=== PATIENT | female | born 1985 | race Caucasian/White ===

== ENCOUNTER 2017-01-23 05:55 | Inpatient (IN) | payer OTHER ==
[2017-01-23] VITALS (11 sets, daily range): BP systolic 114–136; BP diastolic 58–80
[~2017-01-23] VITALS: Ht 165.1 cm; Wt 77.0 kg
[~2017-01-23 05:55] MED LIST: FLINTSTONES1 EACH PO; HEMOCYTE324 MG PO; IBUPROFEN800 MG PO; NAPROSYN500 MG PO; NOHOMEMEDS
[2017-01-23 06:31] LABS: EOSINOPHIL COUNT 0.1 K/uL (0-0.3); HEMATOCRIT 34.9 % (36.0-46.0); IMMATURE GRANULOCYTE (%) 1.7 % (0.0-0.7); IMMATURE GRANULOCYTE COUNT 0.2 K/uL; INSTRUMENT ABS NEUTROPHIL CT 9.5 K/uL; LYMPHOCYTE COUNT 1.4 K/uL (1.0-2.8); MCHC 30.9 G/DL (30.0-36.0); MCV 80.8 FL (83-99); MEAN PLAT.VOLUME 11.8 uM^3 (9.5-12.4); MONOCYTE (%) 6.8 % (3-12); MONOCYTE COUNT 0.8 K/uL (0-0.8); NEUTROPHIL (%) 78.7 % (45-76); NEUTROPHIL COUNT 9.5 K/uL (1.8-6.4); PLATELET COUNT 168 K/uL (156-360); RBC DIS.WIDTH-CV 15.5 % (11.8-14.6); RBC DIS.WIDTH-SD 44.7 % (39-53); RED BLOOD COUNT 4.32 M/uL (3.80-5.20)
[2017-01-24 07:38] VITALS: BP 108/63
[2017-01-24 08:42] LABS: EOSINOPHIL (%) 1.9 % (0-5); EOSINOPHIL COUNT 0.2 K/uL (0-0.3); HEMATOCRIT 32.2 % (36.0-46.0); IMMATURE GRANULOCYTE (%) 1.5 % (0.0-0.7); IMMATURE GRANULOCYTE COUNT 0.2 K/uL; INSTRUMENT ABS NEUTROPHIL CT 7.6 K/uL; LYMPHOCYTE COUNT 1.8 K/uL (1.0-2.8); MCH 25.5 PG (29.0-34.0); MCHC 31.1 G/DL (30.0-36.0); MCV 82.1 FL (83-99); MONOCYTE (%) 6.4 % (3-12); MONOCYTE COUNT 0.7 K/uL (0-0.8); NEUTROPHIL (%) 72.6 % (45-76); NEUTROPHIL COUNT 7.6 K/uL (1.8-6.4); PLATELET COUNT 173 K/uL (156-360); RBC DIS.WIDTH-CV 15.6 % (11.8-14.6); RBC DIS.WIDTH-SD 46.7 % (39-53); RED BLOOD COUNT 3.92 M/uL (3.80-5.20); WHITE BLOOD COUNT 10.4 K/uL (4.1-10.2)
[2017-01-24 16:03] VITALS: BP 113/68
[2017-01-24 23:05] VITALS: BP 104/61
[2017-01-25 07:29] VITALS: BP 113/68
== END 2017-01-25 12:20 | disposition home or self-care (01) | DRG 775 ==
LOC: LDRP-OP 05:55 → 2WEST 05:56
PROVIDERS: Advanced Practice Midwife
DX: O69.1XX0 Labor and delivery complicated by cord around neck, with compression, not applicable or unspecified (principal); O99.824 Streptococcus B carrier state complicating childbirth; Z37.0 Single live birth; Z80.0 Family history of malignant neoplasm of digestive organs; Z3A.39 39 weeks gestation of pregnancy; O99.213 Obesity complicating pregnancy, third trimester; Z68.28 Body mass index [BMI] 28.0-28.9, adult; Z87.891 Personal history of nicotine dependence; E66.3 Overweight
CPT/HCPCS: 85025

== ENCOUNTER 2017-10-28 10:07 | Inpatient (IN) | payer OTHER ==
[~2017-10-28] VITALS: Ht 165.1 cm; Wt 66.3 kg
[2017-10-28 11:00] LABS: HEMATOCRIT 43.5 % (36.0-46.0); MCH 31.9 PG (29.0-34.0); MCHC 34.5 G/DL (30.0-36.0); MCV 92.6 FL (83-99); PLATELET COUNT 202 K/uL (156-360); RBC DIS.WIDTH-CV 12.1 % (11.8-14.6); RBC DIS.WIDTH-SD 41.7 % (39-53); WHITE BLOOD COUNT 8.5 K/uL (4.1-10.2)
[2017-10-28 11:47] LABS: ALBUMIN 5.1 G/DL (3.2-4.8); ALKALINE PHOSPHATASE 153 IU/L (3-129); ALT (GPT) 375 IU/L (3-49); AST (GOT) 654 IU/L (2-34); CHLORIDE 106 MEQ/L (99-109); CREATININE 0.7 MG/DL (0.6-1.3); DIRECT BILIRUBIN 1.1 mg/dL (0.0-0.3); GFR ESTIMATE (CALCULATED) > 59 mL/min/; GLUCOSE 110 mg/dL (70-99); MAGNESIUM 2.1 mg/dl (1.3-2.7); SODIUM 141 MEQ/L (136-147); TOTAL BILIRUBIN 2.7 MG/DL (0.0-1.0); TOTAL PROTEIN 7.8 G/DL (6.4-8.3); UREA NITROGEN (BUN) 12 mg/dL (9-23)
[2017-10-28 11:49] LABS: TROP-I INTERPRETATION NEGATIVE; TROPONIN-I < 0.01 ng/mL (0.0-0.30)
[2017-10-28 12:12] LABS: LIPASE 9 U/L (1.0-51.0)
[2017-10-28 12:31] LABS: QUANTITATIVE HCG < 4.0 MIU/ML
[2017-10-28 14:31] LABS: APPEARANCE CLEAR ((CLEAR)); COLOR YELLOW ((YELLOW))
[2017-10-28 14:32] LABS: GLUCOSE (STRIP) NEGATIVE; KETONES TRACE; LEUKOCYTES NEGATIVE; NITRITE NEGATIVE; PH, URINE 6.5 (5-8); PROTEIN (STRIP) TRACE
[2017-10-28 14:33] LABS: BILIRUBIN NEGATIVE; BLOOD TRACE; UROBILINOGEN 0.2 MG/DL (0.2-1.0)
[2017-10-28] MEDS ORDERED: LEVOTHYROXINE50 MCG PO (14:59)
[2017-10-28] MEDS ORDERED: PRENATAL VITAM1 EAC6 PO (14:59)
[2017-10-28 15:07] LABS: BACTERIA RARE /HPF; EPITHELIAL CELLS RARE /HPF; MUCUS RARE /LPF; RED BLOOD CELLS 0-5 /HPF (0-5); UCUL ADDED? NO; WHITE BLOOD CELLS 0-5 /HPF (0-5)
[2017-10-28 16:46] LABS: CREATINE KINASE 98 IU/L (1-294)
[2017-10-28 16:55] VITALS: BP 116/69
[2017-10-28 20:09] LABS: TROP-I INTERPRETATION NEGATIVE; TROPONIN-I < 0.01 ng/mL (0.0-0.30)
[2017-10-28 23:26] VITALS: BP 109/61
[2017-10-29 03:29] VITALS: BP 101/52
[2017-10-29 06:45] LABS: TROP-I INTERPRETATION NEGATIVE; TROPONIN-I < 0.01 ng/mL (0.0-0.30)
[2017-10-29 06:53] LABS: HEMATOCRIT 36.4 % (36.0-46.0); MCH 30.5 PG (29.0-34.0); MCHC 32.7 G/DL (30.0-36.0); MCV 93.3 FL (83-99); PLATELET COUNT 146 K/uL (156-360); RBC DIS.WIDTH-CV 12.5 % (11.8-14.6); WHITE BLOOD COUNT 3.6 K/uL (4.1-10.2)
[2017-10-29 06:54] LABS: HEMOGLOBIN 11.9 G/DL (11.9-15.5)
[2017-10-29 07:00] VITALS: BP 94/53
[2017-10-29 07:09] LABS: ALBUMIN 3.8 G/DL (3.2-4.8); ALKALINE PHOSPHATASE 170 IU/L (3-129); CHLORIDE 111 MEQ/L (99-109); CREATININE 0.6 MG/DL (0.6-1.3); GFR ESTIMATE (CALCULATED) > 59 mL/min/; GLUCOSE 90 mg/dL (70-99); POTASSIUM 3.9 MEQ/L (3.7-5.4); SODIUM 144 MEQ/L (136-147); UREA NITROGEN (BUN) 7 mg/dL (9-23)
[2017-10-29 07:14] LABS: TOTAL BILIRUBIN 3.9 MG/DL (0.0-1.0); TOTAL PROTEIN 5.5 G/DL (6.4-8.3)
[2017-10-29 07:15] LABS: ALT (GPT) 1138 IU/L (3-49); AST (GOT) 1405 IU/L (2-34)
[2017-10-29 12:50] VITALS: BP 115/70
[2017-10-29 15:20] VITALS: BP 130/75
[2017-10-29 20:29] VITALS: BP 110/68
[2017-10-30 00:48] VITALS: BP 97/55
[2017-10-30 08:41] VITALS: BP 114/65
[2017-10-30 09:28] LABS: ALBUMIN 3.9 G/DL (3.2-4.8); ALKALINE PHOSPHATASE 174 IU/L (3-129); ALT (GPT) 827 IU/L (3-49); CHLORIDE 112 MEQ/L (99-109); CREATININE 0.6 MG/DL (0.6-1.3); GFR ESTIMATE (CALCULATED) > 59 mL/min/; GLUCOSE 85 mg/dL (70-99); POTASSIUM 3.6 MEQ/L (3.7-5.4); SODIUM 147 MEQ/L (136-147); TOTAL PROTEIN 5.6 G/DL (6.4-8.3); UREA NITROGEN (BUN) 6 mg/dL (9-23)
[2017-10-30 09:29] LABS: AST (GOT) 475 IU/L (2-34); TOTAL BILIRUBIN 3.1 MG/DL (0.0-1.0)
[2017-10-30 10:09] LABS: LYME DISEASE SEROLOGY SCREEN NEGATIVE (NEGATIVE)
[2017-10-30 10:58] VITALS: BP 113/58
[2017-10-30 20:00] VITALS: BP 150/68
[2017-10-31 00:46] VITALS: BP 109/61
[2017-10-31 04:14] VITALS: BP 104/64
[2017-10-31 05:54] LABS: HEMATOCRIT 33.8 % (36.0-46.0); HEMOGLOBIN 11.4 G/DL (11.9-15.5); MCH 31.6 PG (29.0-34.0); MCHC 33.7 G/DL (30.0-36.0); MCV 93.6 FL (83-99); PLATELET COUNT 152 K/uL (156-360); RBC DIS.WIDTH-CV 11.9 % (11.8-14.6); RBC DIS.WIDTH-SD 41.5 % (39-53); RED BLOOD COUNT 3.61 M/uL (3.80-5.20); WHITE BLOOD COUNT 6.4 K/uL (4.1-10.2)
[2017-10-31 06:30] LABS: ALBUMIN 3.6 G/DL (3.2-4.8); ALKALINE PHOSPHATASE 162 IU/L (3-129); ALT (GPT) 504 IU/L (3-49); CHLORIDE 107 MEQ/L (99-109); CREATININE 0.6 MG/DL (0.6-1.3); GFR ESTIMATE (CALCULATED) > 59 mL/min/; POTASSIUM 3.8 MEQ/L (3.7-5.4); SODIUM 141 MEQ/L (136-147); TOTAL PROTEIN 5.2 G/DL (6.4-8.3); UREA NITROGEN (BUN) 6 mg/dL (9-23)
[2017-10-31 06:47] LABS: AST (GOT) 183 IU/L (2-34); GLUCOSE 50 mg/dL (70-99); TOTAL BILIRUBIN 2.4 MG/DL (0.0-1.0)
[2017-10-31 07:56] LABS: THYROTROPIN (TSH) 3.8 MIU/L (0.4-5.5)
[2017-10-31 07:57] VITALS: BP 114/70
[2017-10-31 11:59] VITALS: BP 111/87
[2017-10-31 15:36] VITALS: BP 145/74
[2017-10-31 19:22] VITALS: BP 120/76
[2017-11-01 03:30] VITALS: BP 122/64
[2017-11-01 06:13] LABS: BASOPHIL (%) 0.6 % (0-1); EOSINOPHIL (%) 7.2 % (0-5); EOSINOPHIL COUNT 0.4 K/uL (0-0.3); HEMATOCRIT 36.4 % (36.0-46.0); HEMOGLOBIN 12.2 G/DL (11.9-15.5); IMMATURE GRANULOCYTE (%) 0.2 % (0.0-0.7); LYMPHOCYTE (%) 21.9 % (15-42); LYMPHOCYTE COUNT 1.2 K/uL (1.0-2.8); MCH 30.9 PG (29.0-34.0); MCHC 33.5 G/DL (30.0-36.0); MCV 92.2 FL (83-99); MONOCYTE (%) 6.5 % (3-12); MONOCYTE COUNT 0.3 K/uL (0-0.8); NEUTROPHIL (%) 63.6 % (45-76); NEUTROPHIL COUNT 3.3 K/uL (1.8-6.4); PLATELET COUNT 176 K/uL (156-360); RBC DIS.WIDTH-CV 12.1 % (11.8-14.6); RBC DIS.WIDTH-SD 40.9 % (39-53); RED BLOOD COUNT 3.95 M/uL (3.80-5.20); WHITE BLOOD COUNT 5.3 K/uL (4.1-10.2)
[2017-11-01 06:36] LABS: ALBUMIN 3.9 G/DL (3.2-4.8); ALKALINE PHOSPHATASE 137 IU/L (3-129); ALT (GPT) 434 IU/L (3-49); AST (GOT) 102 IU/L (2-34); CHLORIDE 108 MEQ/L (99-109); CREATININE 0.6 MG/DL (0.6-1.3); GFR ESTIMATE (CALCULATED) > 59 mL/min/; GLUCOSE 100 mg/dL (70-99); POTASSIUM 3.6 MEQ/L (3.7-5.4); SODIUM 144 MEQ/L (136-147); TOTAL BILIRUBIN 1.9 MG/DL (0.0-1.0); TOTAL PROTEIN 5.8 G/DL (6.4-8.3); UREA NITROGEN (BUN) 3 mg/dL (9-23)
[2017-11-01 11:04] LABS: HEPATITIS B SURFACE ANTIGEN Nonreactive
[2017-11-01 11:05] LABS: HEPATITIS C ANTIBODY Nonreactive
[2017-11-01 11:06] LABS: ANTI-HEPATITIS A VIRUS (IGM) Nonreactive
[2017-11-01 11:07] LABS: ANTI-HEPATITIS B CORE (IGM) Nonreactive
[2017-11-01 11:23] VITALS: BP 113/58
[2017-11-01] MEDS ORDERED: OXAYDO5 MG PO (14:23)
[2017-11-01 16:47] VITALS: BP 118/72
[2017-11-01 19:46] VITALS: BP 126/63
[2017-11-01 23:51] VITALS: BP 97/54
[2017-11-02 04:02] VITALS: BP 121/72
[2017-11-02 07:20] VITALS: BP 120/74
[2017-11-02 07:44] LABS: ALBUMIN 3.7 G/DL (3.2-4.8); ALKALINE PHOSPHATASE 139 IU/L (3-129); ALT (GPT) 316 IU/L (3-49); AST (GOT) 103 IU/L (2-34); CHLORIDE 106 MEQ/L (99-109); CREATININE 0.5 MG/DL (0.6-1.3); GFR ESTIMATE (CALCULATED) > 59 mL/min/; GLUCOSE 107 mg/dL (70-99); POTASSIUM 3.3 MEQ/L (3.7-5.4); SODIUM 142 MEQ/L (136-147); TOTAL PROTEIN 5.5 G/DL (6.4-8.3); UREA NITROGEN (BUN) 2 mg/dL (9-23)
[2017-11-02 07:47] LABS: TOTAL BILIRUBIN 1.2 MG/DL (0.0-1.0)
[2017-11-02 08:27] LABS: MAGNESIUM 1.4 mg/dl (1.3-2.7)
== END 2017-11-02 11:24 | disposition home or self-care (01) | DRG 418 ==
LOC: DELPENDDIS → EME 10:07 → EDOF 14:41 → 2EAST 14:41 → ENRESERV 14:43 → 2EAST 16:07 → CANRESERV 11-01 14:43 → ENRESERV 11-01 14:43 → ENPENDDIS 11-01 14:49 → 2EAST 11-02 11:24
PROVIDERS: Emergency Medicine; Family Medicine; Hospitalist; Internal Medicine; Surgery
PROC: 0FT44ZZ Resection of Gallbladder, Percutaneous Endoscopic Approach (ICD-10-PCS; 2017-10-30)
PROC: BF101ZZ Fluoroscopy of Bile Ducts using Low Osmolar Contrast (ICD-10-PCS; 2017-10-30)
PROC: 0FJB8ZZ Inspection of Hepatobiliary Duct, Via Natural or Artificial Opening Endoscopic (ICD-10-PCS; principal; 2017-11-01)
PROC: 0FJD8ZZ Inspection of Pancreatic Duct, Via Natural or Artificial Opening Endoscopic (ICD-10-PCS; principal; 2017-11-01)
DX: K80.64 Calculus of gallbladder and bile duct with chronic cholecystitis without obstruction (principal); R18.8 Other ascites; E03.9 Hypothyroidism, unspecified; R00.1 Bradycardia, unspecified; E87.6 Hypokalemia; F17.200 Nicotine dependence, unspecified, uncomplicated; K21.9 Gastro-esophageal reflux disease without esophagitis; R17 Unspecified jaundice
CPT/HCPCS: 71046; 74181; 74300; 74328; 76705; 80048; 80053; 80074; 80076; 81003; 82550 91; 82948; 83605; 83690; 83735; 84443; 84484; 84702; 85025; 85027; 85651; 85730; 86141; 86618; 87040; 87081; 88304; 93005; 99281; 99285; C1769; J0330; J0360; J1100; J1170; J1200; J1650; J2250; J2405; J2543; J2710; J2765; J3010; J3480; J7030; J7040; J7120; J7643; S0074